=== PATIENT | female | born 1955 | race African-American/Black ===

== ENCOUNTER 2022-07-27 09:40 | Outpatient (CLI) | payer BC | END 2022-07-27 09:41 | disposition home or self-care (01) | LOC: CSHMAMMO 09:40 | PROVIDERS: ATTEND Family Medicine | DX: Z12.31 Encounter for screening mammogram for malignant neoplasm of breast (principal); Z80.3 Family history of malignant neoplasm of breast | CPT/HCPCS: 77063; 77067 ==

== ENCOUNTER 2023-04-28 15:06 | Emergency (ER) | payer MEDICARE ==
[2023-04-28] MEDS ORDERED: Ketorolac Tromethamine 30 MG/ML VIAL ONE (16:36)
== END 2023-04-28 17:40 | disposition home or self-care (01) ==
LOC: CSHERS 15:06
DX: M54.32 Sciatica, left side (principal); I48.91 Unspecified atrial fibrillation; I10 Essential (primary) hypertension
CPT/HCPCS: 73522; 96372; J1885

== ENCOUNTER 2023-05-08 11:40 | Outpatient (CLI) | payer MEDICARE | END 2023-05-08 11:41 | disposition home or self-care (01) | LOC: CSHMAMMO 11:40 | PROVIDERS: ATTEND Family Medicine | DX: Z13.820 Encounter for screening for osteoporosis (principal); Z78.0 Asymptomatic menopausal state | CPT/HCPCS: 77080 ==

== ENCOUNTER 2024-03-31 10:12 | Outpatient (CLI) | payer MEDICARE | END 2024-03-31 10:13 | disposition home or self-care (01) | LOC: CSHMAMMO 10:12 | PROVIDERS: ATTEND Family Medicine | DX: Z12.31 Encounter for screening mammogram for malignant neoplasm of breast (principal); Z80.3 Family history of malignant neoplasm of breast | CPT/HCPCS: 77063; 77067 ==

== ENCOUNTER 2025-02-21 08:47 | Outpatient (CLI) | payer MEDICARE, OTHER | END 2025-02-21 08:48 | disposition home or self-care (01) | LOC: CSHSLEEP 08:47 | PROVIDERS: ATTEND Internal Medicine | DX: G47.33 Obstructive sleep apnea (adult) (pediatric) (principal); R06.83 Snoring; E66.9 Obesity, unspecified; Z68.42 Body mass index [BMI] 45.0-49.9, adult | CPT/HCPCS: 95811 ==